=== PATIENT | male | born 1960 | race Two or more races ===

== ENCOUNTER 2020-06-07 15:04 | Emergency (ER) | payer OTHER ==
[~2020-06-07] VITALS: Ht 190.5 cm; Wt 113.4 kg
[2020-06-07 15:14] VITALS: BP 169/81
--- NOTE | 2020-06-07 16:17 | NUR ---
APATIENT PRESENTS TO ED WITH LOWER ABD PAIN/LOW BACK PAIN WITH A SUDDEN ONSET TODAY AFTER HELPING [employer] INTO HOUSE . PT STATES DISCOMFORT FEELS "TIGHT" AND LIKE "GAS PAINS" . DENIES N/V/D; SKIN IS PINK/WARM/DRY; AAOX4 WITH EVEN AND STEADY GAIT; LUNGS CLEAR BL; HR EVEN AND REGULAR; PT DENIES ANY FEVER, CP, SOB, OR COUGH AT THIS TIME; PATIENT STATES PAIN OF 7/10 AT THIS TIME; VSS; PATIENT POSITIONED FOR COMFORT; HOB ELEVATED; BEDRAILS UP X2; BED DOWN. ER MD MADE AWARE OF PT STATUS.
[2020-06-07] MEDS ORDERED: KETOROLAC 30 MG/ML VIAL IVP ONE (16:50)
--- NOTE | 2020-06-07 17:12 | NUR ---
20 G IV ESTABLISHED TO RIGHT AC
--- NOTE | 2020-06-07 17:19 | NUR ---
PT TAKEN TO CT
--- NOTE | 2020-06-07 17:26 | NUR ---
PT BACK FROM CT
--- NOTE | 2020-06-07 17:29 | NUR ---
PT RETURNED FROM CT
[2020-06-07 18:22] LABS: BASOPHILS % (AUTO) 0.3 % (0.0-2.0); EOSINOPHILS # (AUTO) 0.1 K/uL (0-0.4); EOSINOPHILS % (AUTO) 1.2 % (0.0-4.0); HEMATOCRIT 42.3 % (36-52); HEMOGLOBIN 14.3 g/dL (12.0-18.0); LYMPHOCYTES # (AUTO) 1.8 K/uL (2.0-11.5); LYMPHOCYTES % (AUTO) 18.1 % (20.5-51.1); MEAN CORPUSCULAR HEMOGLOBIN 32 pg (27-31); MEAN CORPUSCULAR HGB CONC 34 g/dL (33-37); MEAN CORPUSCULAR VOLUME 94.5 fL (80-94); MONOCYTES # (AUTO) 0.8 K/uL (0.8-1.0); NEUTROPHILS % (AUTO) 72.4 % (42.2-75.2); PLATELET COUNT (AUTO) 165 K/uL (140-450); RED BLOOD CELL COUNT(AUTO) 4.47 MIL/uL (4.20-6.10); RED CELL DISTRIBUTION WIDTH 12.9 % (11.6-13.7); WHITE BLOOD COUNT (AUTO) 9.7 K/uL (4.8-10.8)
[2020-06-07 18:50] LABS: ALBUMIN 3.7 g/dL (3.4-5.0); ANION GAP 13.7 (8-16); CARBON DIOXIDE 25.2 mmol/L (21-32); CREATININE 1.3 mg/dL (0.6-1.3); POTASSIUM 3.9 mmol/L (3.5-5.1); TOTAL BILIRUBIN 0.9 mg/dL (0.0-1.0)
--- NOTE | 2020-06-07 19:14 | NUR ---
REPORT GIVEN TO VÍCTOR SHETTY FOR CONTINUANCE OF CARE, PT SHOWS NO SIGNS OF DISTRESS, VSS
[2020-06-07 19:17] LABS: APPEARANCE,URINE CLEAR (CLEAR); BILIRUBIN,URINE NEGATIVE (NEGATIVE); BLOOD, URINE 3+ (NEGATIVE); COLOR,URINE YELLOW (YELLOW); LEUKOCYTE ESTERASE ,URINE NEGATIVE (NEGATIVE); NITRITE, URINE NEGATIVE (NEGATIVE); PH,URINE 5.5 (5.0-9.0); UGLUCOSE 3+ (NEGATIVE)
[2020-06-07 19:35] LABS: RBC,URINE 80-100 /HPF (0-5)
[2020-06-07 19:36] LABS: WBC,URINE 0-5 /HPF (0-5)
--- NOTE | 2020-06-07 19:50 | NUR ---
Patient discharged with v/s stable. Written and verbal after care instructions given and explained. Patient verbalized understanding. Ambulatory with steady gait. All questions addressed prior to discharge. Advised to follow up with PMD. Addendum: 06/07/20 at 1950 by [facility] Rx of ibuprofen
[2020-06-07 19:51] VITALS: BP 168/91
== END 2020-06-07 19:50 | disposition home or self-care (01) ==
LOC: MED 15:04
DX: N20.0 Calculus of kidney (principal); R10.9 Unspecified abdominal pain; R31.9 Hematuria, unspecified; R93.812 Abnormal radiologic findings on diagnostic imaging of left testicle; E11.9 Type 2 diabetes mellitus without complications; I10 Essential (primary) hypertension; Z90.49 Acquired absence of other specified parts of digestive tract; Z98.890 Other specified postprocedural states
CPT/HCPCS: 36415; 74176; 80053; 81001; 83690; 84484; 85025; 93005; 96374; 99285; J1885

== ENCOUNTER 2023-02-09 13:04 | Inpatient (IN) | payer OTHER ==
[~2023-02-09] VITALS: Ht 190.5 cm; Wt 111.1 kg
[2023-02-09 13:41] VITALS: BP 161/81; PULSE 113; RESP 18; TEMP 98.7; O2SAT 100
--- NOTE | 2023-02-09 14:27 | NUR ---
62YO M PRESENTS W/RT FOOT 4TH AND 5TH DIGIT REDNESS, SWELLING X 2 WKS. REDISH PURPLE NOTED TO 4TH DIGIT. PT DENIES N, V, D, FEVER, CHILLS, ALONZO, INJURY, URINARY SYMPTOMS, SOB, CP, DIZZINESS. SKIN IS PINK/WARM/DRY; AAOX4 WITH EVEN AND STEADY GAIT; LUNGS CLEAR BL; HR EVEN AND REGULAR; PT DENIES LOSS OF SENSATION, NUMBNESS, TINGLING. NAD NOTED, SAFETY MAINTAINED. HX: MRSA, CELLULITIS-TOE, TAIL BONE, DM, HTN
[2023-02-09] MEDS ORDERED: PIPERACILLIN/TAZOBACTAM 3.375 GM in DEXTROSE 5% 50 ML IV ONE (14:45)
[2023-02-09] MEDS ORDERED: VANCOMYCIN 1,000 MG in DEXTROSE 5% 250 ML IV ONE (14:45)
[2023-02-09 15:12] LABS: BASOPHILS # (AUTO) 0.1 K/uL (0.00-0.22); BASOPHILS % (AUTO) 0.5 % (0.0-2.0); EOSINOPHILS # (AUTO) 0.2 K/uL (0-0.4); EOSINOPHILS % (AUTO) 1.4 % (0.0-4.0); HEMATOCRIT 37.1 % (36-52); HEMOGLOBIN 12.3 g/dL (12.0-18.0); LYMPHOCYTES # (AUTO) 1.1 K/uL (2.0-11.5); LYMPHOCYTES % (AUTO) 8.5 % (20.5-51.1); MEAN CORPUSCULAR HEMOGLOBIN 31 pg (27-31); MEAN CORPUSCULAR HGB CONC 33 g/dL (33-37); MEAN CORPUSCULAR VOLUME 92.6 fL (80-94); MONOCYTES # (AUTO) 1.3 K/uL (0.8-1.0); MONOCYTES % (AUTO) 9.9 % (1.7-9.3); NEUTROPHILS # (AUTO) 10.1 K/uL (1.8-7.7); NEUTROPHILS % (AUTO) 79.7 % (42.2-75.2); PLATELET COUNT (AUTO) 217 K/uL (140-450); RED BLOOD CELL COUNT(AUTO) 4.01 MIL/uL (4.20-6.10); RED CELL DISTRIBUTION WIDTH 12.9 % (11.6-13.7); WHITE BLOOD COUNT (AUTO) 12.7 K/uL (4.8-10.8)
[2023-02-09 15:23] LABS: PROTHROMBIN TIME 9.6 secs (10.8-13.4)
[2023-02-09 15:27] LABS: ALBUMIN 3.7 g/dL (3.4-5.0); ANION GAP 15.9 (8-16); CARBON DIOXIDE 23.3 mmol/L (21-32); CREATININE 1.1 mg/dL (0.6-1.3); POTASSIUM 4.2 mmol/L (3.5-5.1); TOTAL BILIRUBIN 0.7 mg/dL (0.0-1.0)
[2023-02-09] MEDS ORDERED: VANCOMYCIN PER PHARMACY MC PRN (16:30)
[2023-02-09] MEDS ORDERED: LORazepam 1 MG TAB PO PRN (16:30)
[2023-02-09] MEDS ORDERED: MORPHINE SULFATE 4 MG/ML SYR IVP PRN (16:30)
[2023-02-09] MEDS ORDERED: ONDANSETRON 4 MG/2 ML VIAL IVP PRN (16:30)
[2023-02-09] MEDS ORDERED: POTASSIUM CHLORIDE 10 MEQ TABER PO PRN (16:30)
[2023-02-09] MEDS ORDERED: KCL 20 MEQ IN 100 mL PREMIX 200 ML IV PRN (16:30)
[2023-02-09] MEDS ORDERED: VANCOMYCIN 1,000 MG VIAL ONE ×2 (17:13→22:26)
[2023-02-09] MEDS ORDERED: PIPERACILLIN/TAZOBACTAM 3.375 GM VIAL IV ONE (17:14)
[2023-02-09] MEDS ORDERED: OXCA300T PO (17:35)
[2023-02-09] MEDS ORDERED: MECL-303 PO (17:35)
[2023-02-09] MEDS ORDERED: ALOG1TAB PO (17:35)
[2023-02-09] MEDS ORDERED: GABA300C PO (17:35)
[2023-02-09] MEDS ORDERED: METF-713 PO (17:35)
[2023-02-09] MEDS ORDERED: GLIP10TE PO (17:35)
[2023-02-09] MEDS ORDERED: TADA20TA42 PO (17:35)
[2023-02-09] MEDS ORDERED: NAPR-1717 PO (17:35)
[2023-02-09] MEDS ORDERED: ATOR20TA PO (17:35)
[2023-02-09] MEDS ORDERED: LORA10TA19 PO (17:35)
[2023-02-09] MEDS ORDERED: LOSA100T2 PO (17:35)
--- NOTE | 2023-02-09 17:46 | NUR ---
The patient's care was reviewed and supervised by JUDI CAI RN.
[2023-02-09 18:00] VITALS: BP 149/68; PULSE 100; RESP 18; TEMP 99.7; O2SAT 97
--- NOTE | 2023-02-09 18:05 | NUR ---
RECEIVED REPORT FROM ER NURSE FOR CONTINUITY OF CARE. PT ARRIVED TO [facility] VIA WHEELCHAIR. PATIENT IS A&O X4, AMBULATORY AND CONTINENT. CURRENTLY STABLE ON ROOM AIR. IV SITE LOCATED AT LEFT AC 20 GAUGE, INTACT AND PATENT. PATIENT STATES 6/10 PAIN IN RIGHT FOOT. PATIENT HAS OPEN DIABETIC FOOT ULCER ON THE RIGHT FOOT, CURRENTLY NURSE SANE. POC DISCUSSED, CALL LIGHT WITHIN REACH, SAFETY MEASURES IN PLACE.
[2023-02-09] MEDS: HYDROcodone/APAP 5/325 MG 1 TAB TAB PO PRN (18:18)
--- NOTE | 2023-02-09 18:45 | NUR ---
PATIENT SHARED CONCERNS ABOUT HIS DIABETES MANAGEMENT, STATED IT WAS 194 IN THE ER. MESSAGED SAXOPHONE PLAYER DR LIU REGARDING ORDER FOR HUMALOG SLIDING SCALE AND ACCUCHECK, AWAITING REPLY BACK.
--- NOTE | 2023-02-09 18:57 | NUR ---
ADMINISTERED NORCO 5/325 MG PO PRN FOR A PAIN LEVEL OF 6/10, WILL REASSESS PAIN LEVEL IN ONE HOUR.
--- NOTE | 2023-02-09 19:30 | NUR ---
RECEIVED PT FROM MORNING SHIFT NURSE. PT IS AOX4, AMBULATORY, ABLE TO VERBALIZE NEEDS AND ABLE TO FOLLOW COMMANDS. PT IS ON ROOM AIR AND ON CCHO DIET. PT HAS IV ON LEFT FOREARM GAUGE 20, SALINE LOCK. PT HAS RIGHT 4TH TOE DM ULCER. PT COMPLAIN FOR HEADACHE. NO S/S OF RESPIRATORY DISTRESS NOTED. ALL SAFETY MEASURES IMPLEMENTED. BED IN LOW POSITION AND BED WHEELS ON LOCK.
--- NOTE | 2023-02-09 19:30 | NUR ---
Patient will be admitted to care of TIAGO LIU MD. Admited to MED/SURG. Will go to room 111B. Belongings list completed. Report to AKIL.
--- NOTE | 2023-02-09 19:31 | NUR ---
NOTIFIED DR. CALDERON THAT PT WANTS ACCUCHECK FOR HIS DM. DOCTOR APPROVED IT. ORDER WAS MADE AND CARRIED OUT.
[2023-02-09 20:00] VITALS: PULSE 94; RESP 18; O2SAT 95
[2023-02-09] MEDS ORDERED: cefTRIAXone 1,000 MG VIAL ONE (20:19)
[2023-02-09] MEDS: BLOOD GLUCOSE MONITORING 1 DEV DEV FS SCH (20:33)
[2023-02-09] MEDS: INSULIN LISPRO SLIDING SCALE 100 UNITS/ML VIAL SUBQ PRN (20:33)
[2023-02-09] MEDS: ZOLPIDEM 5 MG TAB PO PRN (20:36)
[2023-02-09] MEDS: ACETAMINOPHEN 325 MG TAB PO PRN (20:37)
--- NOTE | 2023-02-09 20:37 | NUR ---
ALL SCHEDULED AND PRESCRIBED MEDICATION WAS GIVEN TO PT PER MD ORDER. AMBIEN AND TYLENOL WAS GIVEN DUE TO HEADACHE. BLOOD GLUCOSE IS 157. HUMALOG INSULIN 2 UNITS WAS GIVEN TO PT. ALL SAFETY MEASURES IMPLEMENTED. BED IN LOW POSITION AND BED WHEELS ON LOCK.
[2023-02-09] MEDS: VANCOMYCIN 1,000 MG in DEXTROSE 5% 250 ML IV SCH (22:31)
--- NOTE | 2023-02-09 22:31 | NUR ---
SCHEDULED AND PRESCRIBED MEDICATION WAS GIVEN TO PT. ALL SAFETY MEASURES IMPLEMENTED. BED IN LOW POSITION AND BED WHEELS ON LOCK.
[2023-02-10] VITALS: BP 140/77; PULSE 94; RESP 18; TEMP 98.9; O2SAT 95
--- NOTE | 2023-02-10 | NUR ---
IV IS INFILTRATED. INSERTED IV ON LEFT HAND GAUGE 22. IV IS NOW INTACT AND PATENT. ALL SAFETY MEASURES IMPLEMENTED. BED IN LOW POSITION AND BED WHEELS ON LOCK.
--- NOTE | 2023-02-10 02:00 | NUR ---
PT IS ON SLEEP. CHEST RISE AND FALL SYMMETRICALLY NOTED. RESPIRATION IS EVEN AND UNLABORED. ALL SAFETY MEASURES IMPLEMENTED. BED IN LOW POSITION, BED WHEELS ON LOCK AND CALL LIGHT WITHIN REACH.
--- NOTE | 2023-02-10 04:00 | NUR ---
PT WAS ASSISTED TO DO HIS MORNING CARE. NO COMPLAIN OF PAIN AND NO S/S OF RESPIRATORY DISTRESS NOTED. ALL SAFETY MEASURES IMPLEMENTED. BED IN LOW POSITION, BED WHEELS ON LOCK AND CALL LIGHT WITHIN REACH.
[2023-02-10] MEDS ORDERED: VANCOMYCIN 1,000 MG VIAL ONE (05:02)
[2023-02-10] MEDS: VANCOMYCIN 1,000 MG in DEXTROSE 5% 250 ML IV SCH ×3 (05:10→21:57)
--- NOTE | 2023-02-10 05:10 | NUR ---
SCHEDULED AND PRESCRIBED MEDICATION WAS GIVEN TO PT PER MD ORDER. ALL SAFETY MEASURES IMPLEMENTED. BED IN LOW POSITION, BED WHEELS ON LOCK AND CALL LIGHT WITHIN REACH.
[2023-02-10] MEDS: INSULIN LISPRO SLIDING SCALE 100 UNITS/ML VIAL SUBQ PRN ×4 (06:34→21:16)
[2023-02-10] MEDS: BLOOD GLUCOSE MONITORING 1 DEV DEV FS SCH ×4 (06:34→21:15)
--- NOTE | 2023-02-10 06:34 | NUR ---
PT BLOOD GLUCOSE IS 193. HUMALOG INSULIN 2 UNITS WAS GIVEN TO PT.
[2023-02-10 06:45] LABS: BASOPHILS % (AUTO) 0.3 % (0.0-2.0); EOSINOPHILS # (AUTO) 0.4 K/uL (0-0.4); EOSINOPHILS % (AUTO) 3.2 % (0.0-4.0); HEMATOCRIT 31.7 % (36-52); HEMOGLOBIN 10.8 g/dL (12.0-18.0); LYMPHOCYTES # (AUTO) 1.6 K/uL (2.0-11.5); LYMPHOCYTES % (AUTO) 14.2 % (20.5-51.1); MEAN CORPUSCULAR HEMOGLOBIN 31 pg (27-31); MEAN CORPUSCULAR HGB CONC 34 g/dL (33-37); MEAN CORPUSCULAR VOLUME 91.9 fL (80-94); MONOCYTES # (AUTO) 1.2 K/uL (0.8-1.0); MONOCYTES % (AUTO) 11.2 % (1.7-9.3); NEUTROPHILS # (AUTO) 7.8 K/uL (1.8-7.7); NEUTROPHILS % (AUTO) 71.1 % (42.2-75.2); PLATELET COUNT (AUTO) 196 K/uL (140-450); RED BLOOD CELL COUNT(AUTO) 3.45 MIL/uL (4.20-6.10); RED CELL DISTRIBUTION WIDTH 12.7 % (11.6-13.7)
[2023-02-10 06:48] LABS: ANION GAP 11.3 (8-16); CARBON DIOXIDE 25.7 mmol/L (21-32)
--- NOTE | 2023-02-10 07:03 | NUR ---
receive the patient from the rn circulating rn in rm 111B aox4 admitting diagnosis of diabetic foot ulcer . for antibiotics therapy
--- NOTE | 2023-02-10 07:15 | NUR ---
PT IS STABLE. ENDORSED PT TO MORNING SHIFT NURSE FOR CONTINUITY OF CARE.
[2023-02-10 08:00] VITALS: BP 135/72; PULSE 96; RESP 19; TEMP 97.9; O2SAT 95
[2023-02-10 08:06] VITALS: PULSE 90; RESP 20; O2SAT 99
[2023-02-10] MEDS ORDERED: MAG SULF 2000 MG/WATER PREMIX 50 ML IV SCH (08:30)
--- NOTE | 2023-02-10 09:11 | NUR ---
PATIENT HAS BEEN SCREENED AND CATEGORIZED HIGH NUTRITION RISK. PATIENT WILL BE SEEN WITHIN 1-2 DAYS OF ADMISSION. 02/10/23-02/11/23 [facility] CONSULT FOR WOUND AND DIABETES EDUCATION FOR PATIENT RECEIVED ON 02/10/23. FLAVIA [address]
[2023-02-10] MEDS: ENOXAPARIN 40 MG/0.4 ML SYR SUBQ SCH (09:45)
[2023-02-10] MEDS: DOCUSATE SODIUM 100 MG GELCAP PO SCH (09:46)
--- NOTE | 2023-02-10 11:23 | NUR ---
patient was order picker/assembler for three phase bone scan of the right foot to rule out osteomyelitis the information systems technician use isotopes
--- NOTE | 2023-02-10 14:47 | NUR ---
the patinet was kept hydrated for bone pictures at this time at radiology dept . will continue to monitor
--- NOTE | 2023-02-10 15:07 | NUR ---
02/10/23 RD INITIAL ASSESSMENT COMPLETED PLEASE REFER TO NUTRITION ASSESSMENT UNDER CARE ACTIVITY FOR ESTIMATED NUTRITIONAL NEEDS. 1. CONTINUE CCHO 60 GRAM AND CARDIAC DIET TOLERATED 2. RD RECOMMENDS PROSOURCE BID FOR WOUNDS. THIS WILL PROVIDE 120 CALORIES AND 30 GRAMS OF PROTEIN. 3. RD ENCOURAGES PATIENT TO CONTINUE TO FOLLOW DIABETIC DIET ONCE HE LEAVES THE HOSPITAL. 4. RD TO FOLLOW-UP 7 DAYS, LOW RISK FLAVIA NAVARRE[address]
[2023-02-10 16:00] VITALS: BP 138/80; PULSE 98; RESP 20; TEMP 98.1; O2SAT 95
[2023-02-10] MEDS: HYDROcodone/APAP 5/325 MG 1 TAB TAB PO PRN (19:39)
--- NOTE | 2023-02-10 19:47 | NUR ---
will endorse to nighty shift rn for continuity of care . for antibiotics and pain mgt of cellulitis of the foot
--- NOTE | 2023-02-10 19:48 | NUR ---
RECEIVED PT FROM MORNING SHIFT NURSE. PT IS AOX4, AMBULATORY, ABLE TO VERBALIZE NEEDS AND ABLE TO FOLLOW COMMANDS. PT IS ON ROOM AIR AND ON CCHO/CARDIAC DIET. PT HAS IV ON LEFT HAND GAUGE 22, SALINE LOCK. PT HAS RIGHT 4TH TOE DM ULCER. NO S/S OF RESPIRATORY DISTRESS NOTED. ALL SAFETY MEASURES IMPLEMENTED. BED IN LOW POSITION AND BED WHEELS ON LOCK.
[2023-02-10 20:00] VITALS: PULSE 97; RESP 18; O2SAT 95
[2023-02-10] MEDS: ZOLPIDEM 5 MG TAB PO PRN (21:08)
--- NOTE | 2023-02-10 21:16 | NUR ---
ALL SCHEDULED AND PRESCRIBED MEDICATION WAS GIVEN TO PT PER MD ORDER. PT BLOOD GLUCOSE IS 158. HUMALOG INSULIN 2 UNITS WAS GIVEN TO PT. AMBIEN WAS ALSO GIVEN PER PT REQUEST. ALL SAFETY MEASURES IMPLEMENTED. BED IN LOW POSITION AND BED WHEELS ON LOCK.
--- NOTE | 2023-02-10 21:57 | NUR ---
SCHEDULED AND PRESCRIBED MEDICATION WAS GIVEN TO PT PER MD ORDER. ALL SAFETY MEASURES IMPLEMENTED. BED IN LOW POSITION AND BED WHEELS ON LOCK.
[2023-02-11] VITALS: BP 146/63; PULSE 97; RESP 18; TEMP 99.5; O2SAT 95
--- NOTE | 2023-02-11 | NUR ---
PT IS ON SLEEP. CHEST RISE AND FALL SYMMETRICALLY NOTED. RESPIRATION IS EVEN AND UNLABORED. ALL SAFETY MEASURES IMPLEMENTED. BED IN LOW POSITION AND BED WHEELS ON LOCK.
--- NOTE | 2023-02-11 02:00 | NUR ---
CHECKED THE PT, STILL ON SLEEP. CHEST RISE AND FALL SYMMETRICALLY NOTED. RESPIRATION IS EVEN AND UNLABORED. ALL SAFETY MEASURES IMPLEMENTED, BED IN LOW POSITION, BED WHEELS ON LOCK AND CALL LIGHT WITHIN REACH.
[2023-02-11] MEDS: VANCOMYCIN 1,000 MG in DEXTROSE 5% 250 ML IV SCH ×3 (05:04→21:17)
--- NOTE | 2023-02-11 05:04 | NUR ---
SCHEDULED AND PRESCRIBED MEDICATION WAS GIVEN TO PT PER MD ORDER. NO COMPLAIN OF PAIN. NO S/S OF RESPIRATORY DISTRESS NOTED. ALL SAFETY MEASURES IMPLEMENTED, BED IN LOW POSITION, BED WHEELS ON LOCK AND CALL LIGHT WITHIN REACH.
[2023-02-11 06:27] LABS: BASOPHILS % (AUTO) 0.3 % (0.0-2.0); EOSINOPHILS # (AUTO) 0.4 K/uL (0-0.4); EOSINOPHILS % (AUTO) 4.2 % (0.0-4.0); HEMATOCRIT 31.6 % (36-52); HEMOGLOBIN 10.8 g/dL (12.0-18.0); LYMPHOCYTES # (AUTO) 1.5 K/uL (2.0-11.5); LYMPHOCYTES % (AUTO) 14.7 % (20.5-51.1); MEAN CORPUSCULAR HEMOGLOBIN 31 pg (27-31); MEAN CORPUSCULAR HGB CONC 34 g/dL (33-37); MEAN CORPUSCULAR VOLUME 91.4 fL (80-94); MONOCYTES # (AUTO) 1.3 K/uL (0.8-1.0); MONOCYTES % (AUTO) 12.4 % (1.7-9.3); NEUTROPHILS # (AUTO) 7.1 K/uL (1.8-7.7); NEUTROPHILS % (AUTO) 68.4 % (42.2-75.2); PLATELET COUNT (AUTO) 206 K/uL (140-450); RED BLOOD CELL COUNT(AUTO) 3.46 MIL/uL (4.20-6.10); RED CELL DISTRIBUTION WIDTH 12.6 % (11.6-13.7); WHITE BLOOD COUNT (AUTO) 10.4 K/uL (4.8-10.8)
[2023-02-11 06:29] LABS: ANION GAP 12.9 (8-16); CARBON DIOXIDE 25.1 mmol/L (21-32)
[2023-02-11] MEDS: BLOOD GLUCOSE MONITORING 1 DEV DEV FS SCH ×3 (06:32→17:12)
[2023-02-11] MEDS: INSULIN LISPRO SLIDING SCALE 100 UNITS/ML VIAL SUBQ PRN ×3 (06:32→17:16)
--- NOTE | 2023-02-11 06:32 | NUR ---
PT BLOOD GLUCOSE IS 195. HUMALOG INSULIN 2 UNITS WAS GIVEN TO PT.
--- NOTE | 2023-02-11 07:27 | NUR ---
PT IS STABLE. ENDORSED PT TO MORNING SHIFT FOR CONTINUITY OF CARE.
--- NOTE | 2023-02-11 07:28 | NUR ---
RECEIVED BEDSIDE REPORT FROM WEBSITE OPTIMIZATION STRATEGIST NURSE FOR CONTINUITY OF CARE. PT IS AWAKE, NO SIGN OF DISTRESS, CALL LIGHT WITHIN REACH.
[2023-02-11 08:00] VITALS: BP 141/66; PULSE 87; RESP 18; TEMP 97.6; O2SAT 95; O2SAT 97
[2023-02-11] MEDS: DOCUSATE SODIUM 100 MG GELCAP PO SCH (10:18)
[2023-02-11] MEDS: MAG SULF 2000 MG/WATER PREMIX 50 ML IV PRN (10:18)
[2023-02-11] MEDS: ENOXAPARIN 40 MG/0.4 ML SYR SUBQ SCH (10:22)
[2023-02-11] MEDS: ACETAMINOPHEN 325 MG TAB PO PRN ×2 (10:29→20:26)
[2023-02-11 16:00] VITALS: BP 133/58; PULSE 90; RESP 18; TEMP 98.5; O2SAT 95
[2023-02-11] MEDS: PIPERACILLIN/TAZOBACTAM 3.375 GM in DEXTROSE 5% 50 ML IV SCH ×2 (17:11→23:39)
[2023-02-11] MEDS: HYDROcodone/APAP 5/325 MG 1 TAB TAB PO PRN (17:24)
--- NOTE | 2023-02-11 19:20 | NUR ---
GAVE BEDSIDE REPORT TO GLOVE STITCHER NURSE FOR CONTINUITY OF CARE. PT IS STABLE, NO SIGN OF DISTRESS. HOME MEDS CONTINUED PER MD. CALL LIGHT WITHIN REACH.
--- NOTE | 2023-02-11 19:21 | NUR ---
RECEIVED PT FROM MORNING SHIFT NURSE. PT IS AOX4, AMBULATORY, ABLE TO VERBALIZE NEEDS AND ABLE TO FOLLOW COMMANDS. PT IS ON ROOM AIR AND ON CCHO/CARDIAC DIET. PT HAS IV ON LEFT WRIST GAUGE 22, SALINE LOCK. PT HAS RIGHT 4TH TOE DM ULCER. NO S/S OF RESPIRATORY DISTRESS NOTED. ALL SAFETY MEASURES IMPLEMENTED. BED IN LOW POSITION AND BED WHEELS ON LOCK.
[2023-02-11 20:00] VITALS: PULSE 83; RESP 17; O2SAT 97
[2023-02-11] MEDS: glipiZIDE ER 5 MG TABER PO SCH (20:22)
[2023-02-11] MEDS: ZOLPIDEM 5 MG TAB PO PRN (20:22)
--- NOTE | 2023-02-11 20:22 | NUR ---
SCHEDULED AND PRESCRIBED MEDICATION WAS GIVEN TO PT PER MD ORDER. PT WAS ALSO GIVEN AMBIEN AND TYLENOL DUE TO HEADACHE. ALL SAFETY MEASURES IMPLEMENTED. BED IN LOW POSITION AND BED WHEELS ON LOCK.
--- NOTE | 2023-02-11 21:17 | NUR ---
SCHEDULED AND PRESCRIBED MEDICATION WAS GIVEN TO PT PER MD ORDER. ALL SAFETY MEASURES IMPLEMENTED. BED IN LOW POSITION AND BED WHEELS ON LOCK.
--- NOTE | 2023-02-11 23:39 | NUR ---
SCHEDULED AND PRESCRIBED MEDICATION WAS GIVEN TO PT PER MD ORDER. NO S/S OF RESPIRATORY DISTRESS NOTED. ALL SAFETY MEASURES IMPLEMENTED. BED IN LOW POSITION AND BED WHEELS ON LOCK.
[2023-02-12] VITALS: BP 135/72; PULSE 83; RESP 17; TEMP 98.2; O2SAT 97
--- NOTE | 2023-02-12 | NUR ---
REMINDED PT THAT HE'S ON NPO DUE TO SURGERY. PT VERBALIZE UNDERSTANDING. ALL SAFETY MEASURES IMPLEMENTED. BED IN LOW POSITION, BED WHEELS ON LOCK AND CALL LIGHT WITHIN REACH.
--- NOTE | 2023-02-12 02:00 | NUR ---
IV IS INFILTRATED. INSERTED IV ON LEFT FOREARM GAUGE 22. IV IS NOW PATENT AND INTACT. ALL SAFETY MEASURES IMPLEMENTED. BED IN LOW POSITION, BED WHEELS ON LOCK AND CALL LIGHT WITHIN REACH.
--- NOTE | 2023-02-12 04:00 | NUR ---
PT IS ON SLEEP. CHEST RISE AND FALL SYMMETRICALLY NOTED. RESPIRATION IS EVEN AND UNLABORED. ALL SAFETY MEASURES IMPLEMENTED. BED IN LOW POSITION. BED WHEELS ON LOCK AND CALL LIGHT WITHIN REACH.
[2023-02-12] MEDS: PIPERACILLIN/TAZOBACTAM 3.375 GM in DEXTROSE 5% 50 ML IV SCH ×3 (05:07→18:11)
--- NOTE | 2023-02-12 05:07 | NUR ---
SCHEDULED AND PRESCRIBED MEDICATION WAS GIVEN TO PT PER MD ORDER. ALL SAFETY MEASURES IMPLEMENTED. BED IN LOW POSITION. BED WHEELS ON LOCK AND CALL LIGHT WITHIN REACH.
[2023-02-12] MEDS: VANCOMYCIN 1,000 MG in DEXTROSE 5% 250 ML IV SCH ×2 (05:53→14:36)
[2023-02-12 05:58] LABS: BASOPHILS % (AUTO) 0.3 % (0.0-2.0); EOSINOPHILS # (AUTO) 0.4 K/uL (0-0.4); EOSINOPHILS % (AUTO) 3.5 % (0.0-4.0); HEMATOCRIT 31.5 % (36-52); HEMOGLOBIN 10.8 g/dL (12.0-18.0); LYMPHOCYTES # (AUTO) 1.4 K/uL (2.0-11.5); LYMPHOCYTES % (AUTO) 13.9 % (20.5-51.1); MEAN CORPUSCULAR HEMOGLOBIN 31 pg (27-31); MEAN CORPUSCULAR HGB CONC 34 g/dL (33-37); MEAN CORPUSCULAR VOLUME 90.8 fL (80-94); MONOCYTES # (AUTO) 1.1 K/uL (0.8-1.0); NEUTROPHILS # (AUTO) 7.3 K/uL (1.8-7.7); NEUTROPHILS % (AUTO) 71.3 % (42.2-75.2); PLATELET COUNT (AUTO) 229 K/uL (140-450); RED BLOOD CELL COUNT(AUTO) 3.47 MIL/uL (4.20-6.10); RED CELL DISTRIBUTION WIDTH 12.5 % (11.6-13.7); WHITE BLOOD COUNT (AUTO) 10.2 K/uL (4.8-10.8)
[2023-02-12 06:43] LABS: ANION GAP 12.4 (8-16); CARBON DIOXIDE 24.5 mmol/L (21-32); CREATININE 0.9 mg/dL (0.6-1.3); POTASSIUM 3.9 mmol/L (3.5-5.1)
--- NOTE | 2023-02-12 07:34 | NUR ---
RECEIVED PATIENT FROM PM NURSE FOR CONTINUATION OF CARE. PATIENT SEEN ON BED AWAKE. PATIENT VERBALIZED OF TROUBLE SLEEPING LAST NIGHT DUE TO SURGERY PROCEDURE.
--- NOTE | 2023-02-12 07:35 | NUR ---
PT IS STABLE. ENDORSED PT TO MORNING SHIFT NURSE FOR CONTINUITY OF CARE.
[2023-02-12 08:00] VITALS: BP 139/76; PULSE 76; PULSE 91; RESP 19; TEMP 98.9; O2SAT 98
--- NOTE | 2023-02-12 08:30 | NUR ---
PATIENT VERBALIZES FRUSTRATION DUE TO OPERATION TIME AT 730, AND HE STILL HAS NOT BEEN TRANSFERRED. PATIENT WAS GIVEN EXPLANATION TO WHY THERE IS A SLIGHT DELAY. PATIENT CONTINUES TO COMPLAIN AND SHOW SIGNS OF FRUSTRATION.
[2023-02-12] MEDS: MAG SULF 2000 MG/WATER PREMIX 50 ML IV PRN (08:42)
[2023-02-12] MEDS: glipiZIDE ER 5 MG TABER PO SCH ×2 (09:00→22:17)
[2023-02-12] MEDS: ENOXAPARIN 40 MG/0.4 ML SYR SUBQ SCH (09:00)
[2023-02-12] MEDS: metFORMIN 850 MG TAB PO SCH ×3 (09:00→18:12)
[2023-02-12] MEDS: DOCUSATE SODIUM 100 MG GELCAP PO SCH (09:00)
--- NOTE | 2023-02-12 10:15 | NUR ---
DC PLANN[age] YRS OLD MALE PATIENT WAS ADMITTED FROM HOME WITH A DX OF DIABETIC FOOT INFECTION. PATIENT HAS A HX OF DM AND HTN. X-RAY RT FOOT SHOWED CELLULITIS , BONE SCAN SHOWED DIFFUSELY INCREASED RADIOTRACER UPTAKE IN THE RIGHT FOOT. US ARTERIAL SHOWED NO EVIDENCE FOR SIGNIFICANT FOCAL STENOSIS OR ARTERIAL OCCLUSION. ADMINISTERED IVF IV ABX ZOSYN AND CONTINUED HOME MEDS. CONSULTED WITH PODIATRY AND ID. PATIENT HAS AN MRI ORDER HOWEVER DR SUMMERS PODIATRY SCHEDULED FOR I&D THIS AFTERNOON. PER DR LIU TO HOLD THE MRI. DC PLAN PER PODIATRY RECOMMENDATIONS. CM TO FOLLOW Addendum: 02/13/23 at 1111 by OTILAI MAHER CM DC PLANNING I AND D AND AMPUTATION 4TH TOE DONE 02/12/23.ON ZOSYN.WBC 13.0. ON BOARD.NO NEED FOR ROAD BUILDER ABX PER ID.MRI CANCELLED.PAIN MEDS-HYDROCODONE,TYLENOL AND MORPHINE PRN. CM TO FOLLOW.
--- NOTE | 2023-02-12 10:46 | NUR ---
OR TEAM PICKS UP PATIENT. BLOOD SUGAR CHECKED PRIOR TO DEPARTURE. BLOOD GLUCOSE SHOWS 216. PATIENT GIVEN 2 UITS HUMULOG INSULIN BASED ON SLIDING SCALE. PATIENT MISSED METFORMIN PO MEDS IN THE MORNING DUE TO NPO STATUS. PATIENT AGREED TO INSULIN ADMINISTRATION AFTER GIVEN HEALTH TEACHING FROM COST RECORDER
[2023-02-12] MEDS ORDERED: ONDANSETRON 4 MG/2 ML VIAL IVP PRN (10:50)
[2023-02-12] MEDS ORDERED: HYDROmorphone 1 MG/ML AMP IVP PRN (10:50)
[2023-02-12] MEDS ORDERED: BUPIVACAINE-MPF 0.5% 30 ML VIAL INJ ONE (10:51)
[2023-02-12] MEDS ORDERED: HYDROGEN PEROXIDE 3% 240 ML BTL TP ONE (10:52)
[2023-02-12] MEDS ORDERED: KETOROLAC 30 MG/ML VIAL IVP ONE (11:06)
[2023-02-12] MEDS ORDERED: SEVOFLURANE 250 ML BTL INH ONE (11:06)
[2023-02-12] MEDS ORDERED: fentaNYL citrate 0.05 MG/ML VIAL ONE (11:07)
[2023-02-12] MEDS ORDERED: PROPOFOL 200 MG/20 ML VIAL IV ONE (11:07)
[2023-02-12] MEDS ORDERED: MIDAZOLAM 2 MG/2 ML VIAL ONE (11:08)
[2023-02-12] MEDS ORDERED: METOCLOPRAMIDE 10 MG/2 ML INJ VIAL ONE (11:23)
[2023-02-12] MEDS ORDERED: ONDANSETRON 4 MG/2 ML VIAL ONE (11:23)
[2023-02-12] MEDS ORDERED: DEXAMETHASONE 4 MG/ML VIAL ONE (11:23)
--- NOTE | 2023-02-12 12:30 | NUR ---
PATIENT TRANSPORTED BACK TO UNIT FROM PACU. PATIENT STABLE, ASLEEP, NORMAL RISE AND FALL OF CHEST
[2023-02-12 16:00] VITALS: BP 143/82; PULSE 84; RESP 18; TEMP 97.7; O2SAT 96
[2023-02-12 20:00] VITALS: BP 121/69; PULSE 94; RESP 19; TEMP 98.2; O2SAT 95
[2023-02-12] MEDS: HYDROcodone/APAP 5/325 MG 1 TAB TAB PO PRN (22:22)
--- NOTE | 2023-02-12 22:22 | NUR ---
PT COMPLAINTS OF RIGHT FOOT PAIN 12/27, PAIN MEDICATION NORCO ADMINISTERED ORDERED.
--- NOTE | 2023-02-12 23:22 | NUR ---
REASSESSMENT OF PAIN. PT VERBALIZED OF NO PAIN. MEDICATION NORCO IS EFFECTIVE.
[2023-02-13] MEDS: PIPERACILLIN/TAZOBACTAM 3.375 GM in DEXTROSE 5% 50 ML IV SCH ×3 (00:48→13:13)
[2023-02-13 06:14] LABS: ANION GAP 13.7 (8-16); BASOPHILS # (AUTO) 0.1 K/uL (0.00-0.22); BASOPHILS % (AUTO) 0.4 % (0.0-2.0); CARBON DIOXIDE 24.8 mmol/L (21-32); CREATININE 1.2 mg/dL (0.6-1.3); EOSINOPHILS % (AUTO) 0.2 % (0.0-4.0); HEMOGLOBIN 10.8 g/dL (12.0-18.0); LYMPHOCYTES # (AUTO) 1.3 K/uL (2.0-11.5); MEAN CORPUSCULAR HEMOGLOBIN 31 pg (27-31); MEAN CORPUSCULAR HGB CONC 34 g/dL (33-37); MONOCYTES # (AUTO) 1.1 K/uL (0.8-1.0); MONOCYTES % (AUTO) 8.4 % (1.7-9.3); NEUTROPHILS # (AUTO) 10.5 K/uL (1.8-7.7); PLATELET COUNT (AUTO) 247 K/uL (140-450); POTASSIUM 4.5 mmol/L (3.5-5.1); RED BLOOD CELL COUNT(AUTO) 3.52 MIL/uL (4.20-6.10); RED CELL DISTRIBUTION WIDTH 12.8 % (11.6-13.7)
--- NOTE | 2023-02-13 07:10 | NUR ---
RECEIVED PATIENT FROM PM NURSE FOR CONTINUATION OF CARE. PATIENT SEEN IN ROOM AWAKE. PATIENT STATES HE COULD NOT SLEEP DUE TO ALL THE LOUD NOISE AND BEEPING. PATIENT WAS ASKED WHETHER HIS IV WAS THE ONE THAT WAS BEEPING, PATIENT STATED IT WAS ANOTHER IV PUMP IN ANOTHER ROOM.
[2023-02-13 08:00] VITALS: BP 141/74; PULSE 82; RESP 18; TEMP 97.4; O2SAT 98
--- NOTE | 2023-02-13 08:30 | NUR ---
PATIENT ASKED IF HE WILL BE DISCHARGED TODAY AND IF THERE ARE ANY UPDATES. PATIENT WAS UPDATED ON THE [id number] Addendum: 02/13/23 at 1430 by NASREEN WEBBER RN WAS UPDATED ON THE CURRENT STATUS AND WILL BE INFORMED OF ANY UPDATES LATER TO COME
[2023-02-13] MEDS: DOCUSATE SODIUM 100 MG GELCAP PO SCH (09:00)
--- NOTE | 2023-02-13 10:00 | NUR ---
CHARGE NURSE SPOKE WITH PATIENT ABOUT PATIENT CONCERNS. PATIENT VERBALIZED UNDERSTANDING
[2023-02-13] MEDS: glipiZIDE ER 5 MG TABER PO SCH (10:08)
[2023-02-13] MEDS: metFORMIN 850 MG TAB PO SCH ×2 (10:08→13:13)
[2023-02-13] MEDS: ENOXAPARIN 40 MG/0.4 ML SYR SUBQ SCH (10:10)
[2023-02-13] MEDS ORDERED: AMOX1TAB8 PO (11:13)
[2023-02-13] MEDS: ACETAMINOPHEN 325 MG TAB PO PRN (11:37)
--- NOTE | 2023-02-13 12:30 | NUR ---
INFORMED PATIENT THAT GRITTING MACHINE OPERATOR WILL COME SEE HIM TODAY AND CHANGE HIS DRESSING. PATIENT VERBALIZED UNDERSTANDING
[2023-02-13] MEDS ORDERED: AMOX-1230 PO (14:40)
[2023-02-13 18:17] VITALS: BP 141/74; PULSE 82; RESP 18; TEMP 97.4
== END 2023-02-13 18:45 | disposition home health service (06) | DRG 710 ==
LOC: MED 13:04 → MMU 16:29 → MTU 16:45
PROVIDERS: ADMIT Internal Medicine; ATTEND Internal Medicine
PROC: 0QBN0ZX Excision of Right Metatarsal, Open Approach, Diagnostic (ICD-10-PCS; 2023-02-12)
PROC: 0Y6M0ZD Detachment at Right Foot, Partial 4th Ray, Open Approach (ICD-10-PCS; principal; 2023-02-12 07:30)
DX: A41.9 Sepsis, unspecified organism (principal); E11.621 Type 2 diabetes mellitus with foot ulcer; E11.51 Type 2 diabetes mellitus with diabetic peripheral angiopathy without gangrene; L97.519 Non-pressure chronic ulcer of other part of right foot with unspecified severity; M86.8X7 Other osteomyelitis, ankle and foot; L03.031 Cellulitis of right toe; I10 Essential (primary) hypertension; E11.69 Type 2 diabetes mellitus with other specified complication; Z90.49 Acquired absence of other specified parts of digestive tract
CPT/HCPCS: 36415; 73630; 78315; 80048; 80053; 80202; 82948; 83605; 83735; 85025; 85610; 85651; 85730; 86140; 87040; 87070; 87075; 87081; 87186; 87205; 93925; 96365; 99285; J0696; J1100; J1650; J1815; J1885; J2250; J2405; J2543; J2704; J2765; J3010; J3370; J3475; J3490; J7030; J7060; Q0092